=== PATIENT | female | born 1950 | race Caucasian/White ===

== ENCOUNTER → 2017-02-05 | Outpatient (CLI) | payer MEDICARE, BC ==
--- NOTE | 2017-02-05 10:15 | KCIC ---
EXAM: Lumbar spine, 5 views. HISTORY: Pain. COMPARISON: None. FINDINGS: Frontal, lateral, bilateral oblique and coned sacral views of the lumbar spine are obtained. There is no listhesis. The vertebral bodies are normal in height and the disc spaces are preserved. There is mild endplate remodeling at multiple levels. There is facet arthropathy predominantly at the lower lumbar levels. IMPRESSION: 1. Mild multilevel degenerative change. 2. No acute osseous finding. Electronically signed by: Jessie Negrete MD (02/05/2017 10:11 AM) [id number]
== END | disposition home or self-care (01) ==
LOC: KCIC 09:43
PROVIDERS: ATTEND Family Medicine
DX: M47.896 Other spondylosis, lumbar region (principal)
CPT/HCPCS: 72110